=== PATIENT | female | born 1970 | race Caucasian/White ===

== ENCOUNTER 2019-03-21 22:00 | Emergency (ER) | payer BC ==
[2019-03-21] MEDS ORDERED: Ketorolac 60 MG/2 ML SDV IVPUSH ONE (22:17)
[2019-03-21] MEDS ORDERED: HYDROmorphone 2 MG/ML Syringe IVPUSH ONE (22:17)
--- NOTE | 2019-03-21 22:24 | EDM.PDOC ---
ED HPI GENERAL MEDICAL PROBLEM - General Chief Complaint: Lower Extremity Injury/Pain Stated Complaint: Pain Right lower leg Time Seen by Provider: 03/21/19 22:15 Source of Information: Reports: Patient History Limitations: Reports: No Limitations - History of Present Illness INITIAL COMMENTS - FREE TEXT/NARRATIVE: Annabelle struck her right lombardo against a bed frame [place]. Large hematoma developed almost instantly. NKDA. Tolerates opioids well after multiple spinal and abdominal surgeries. Slight paresthesia into anterior of right foot. - Related Data Allergies Allergy/AdvReac Type Severity Reaction Status Date / Time No Known Allergies Allergy Verified 03/21/19 22:23 Review of Systems - Review of Systems Review Of Systems: See Below Musculoskeletal: Reports: Leg Pain. Denies: Joint Pain, Joint Swelling Skin: Reports: Bruising ED EXAM, GENERAL - Physical Exam Exam: See Below Exam Limited By: No Limitations General Appearance: Alert, WD/WN, Anxious Ears: Normal External Exam, Hearing Grossly Normal Throat/Mouth: Normal Inspection Head: Atraumatic, Normocephalic Respiratory/Chest: No Respiratory Distress Cardiovascular: Normal Peripheral Pulses Extremities: No Pedal Edema, Normal Capillary Refill, Other (active complete ROM in all joints and sensation intact to light touch throughout) Neurological: Alert, Oriented, No Motor/Sensory Deficits Psychiatric: Anxious Course - Vital Signs Text/Narrative:: Reviewed Xray results and no evidence of fx. Discussed elevation, icing, and gentle compression as tolerated. - Orders/Labs/Meds Orders: Active Orders 24 hr Category Date Time Status Tibia Fibula Rt [CR] Stat Exams 03/21/19 22:18 Ordered Meds: Medications Discontinued Medications Generic Name Dose Route Start Last Admin Trade Name Freq PRN Reason Stop Dose Admin Hydromorphone HCl 0.25 mg 03/21/19 22:17 Dilaudid IVPUSH 03/21/19 22:18 ONETIME ONE Ketorolac Tromethamine 15 mg 03/21/19 22:17 Toradol IVPUSH 03/21/19 22:18 ONETIME ONE Departure - Departure Time of Disposition: 22:30 Disposition: Home, Self-Care 01 Clinical Impression: Lombardo injury Qualifiers: Encounter type: initial encounter Laterality: right Qualified Code(s): S89.91XA - Unspecified injury of right lower leg, initial encounter - Discharge Information *PRESCRIPTION DRUG MONITORING PROGRAM REVIEWED*: No *COPY OF PRESCRIPTION DRUG MONITORING REPORT IN PATIENT NAIMA: No Forms: ED Department Discharge Sepsis Event Note - Focused Exam Date Exam was Performed: 03/21/19 Time Exam was Performed: 22:35 - My Orders Last 24 Hours: My Active Orders 03/21/19 22:18 Tibia Fibula Rt [CR] Stat - Assessment/Plan Last 24 Hours: My Active Orders 03/21/19 22:18 Tibia Fibula Rt [CR] Stat
--- NOTE | 2019-03-22 11:54 | CR ---
Date of Service: 03/21/19 Clinical Data: struck lombardo and hematoma RIGHT LOWER LEG: There is soft tissue swelling anterior to the proximal tibia. No acute fracture or dislocation. No lytic or blastic bone lesions. [id number] MTDD
== END 2019-03-21 23:00 | disposition home or self-care (01) ==
LOC: LB.ED 22:15
DX: S89.91XA Unspecified injury of right lower leg, initial encounter (principal); W22.8XXA Striking against or struck by other objects, initial encounter
CPT/HCPCS: 73590; 96374; 96375; 99283; 99284; J1170; J1885